=== PATIENT | female | born 1970 | race Caucasian/White ===

== ENCOUNTER 2025-05-09 09:23 | Inpatient (IN) | payer OTHER, BC ==
[~2025-05-09] VITALS: Ht 162.6 cm; Wt 108.0 kg
[2025-05-09 09:27] VITALS: O2SAT 98
[2025-05-09] MEDS: IBUPROFEN 600MG TABLET PO ONE (09:41)
[2025-05-09 12:06] LABS: BASOPHILS % 0.6 % (0.0-2.0); EOSINOPHILS % 0.8 % (0.0-5.0); HEMATOCRIT. 40.9 % (36.0-48.0); HEMOGLOBIN. 13.5 g/dL (12.0-16.0); LYMPHOCYTES % 20.6 % (20.0-50.0); MEAN PLATELET VOLUME 9.2 fl (7.4-10.4); MONOCYTES % 5.7 % (2.0-8.0); NEUTROPHILS % 72.3 % (40.0-76.0); PLATELET 309 x1000/uL (130-400); RED BLOOD CELL COUNT 4.56 mill/uL (4.2-5.4); RED CELL DISTRIBUTION WIDTH 13.9 % (11.6-14.6)
[2025-05-09 12:28] LABS: CREATININE 0.7 mg/dL (0.6-1.0); UREA NITROGEN BLOOD 11 mg/dL (9-23)
[2025-05-09 13:55] VITALS: BP 104/58; PULSE 56; RESP 20; TEMP 36.3; O2SAT 99
[2025-05-09 13:58] VITALS: BP 104/58; PULSE 56; RESP 17; TEMP 36.3; O2SAT 99
[2025-05-09 14:00] VITALS: BP 104/58; PULSE 56; RESP 18; TEMP 36.3624
[2025-05-09] MEDS ORDERED: ONDANSETRON HCL 4MG/2ML INJ IV PRN (15:30)
[2025-05-09] MEDS ORDERED: IPRATROPIUM/ALBUTEROL 0.5-3(2.5)MG/3ML NEB HHN PRN (15:30)
[2025-05-09] MEDS ORDERED: ACETAMINOPHEN 325MG TABLET PO PRN (15:30)
[2025-05-09 16:00] VITALS: BP 122/78; PULSE 62; RESP 20; TEMP 36.4; O2SAT 96
[2025-05-09] MEDS: CYCLOBENZAPRINE 10MG TABLET PO PRN (17:21)
[2025-05-09] MEDS: ENOXAPARIN 40MG/0.4ML SYR SUBCUT SCH (17:21)
[2025-05-09] MEDS ORDERED: INFLUENZA VACCINE 05/PF 0.5 ML SYRINGE IM ONE (17:30)
[2025-05-09 20:00] VITALS: BP 124/73; PULSE 60; RESP 18; TEMP 36; O2SAT 95
[2025-05-10] VITALS: BP 110/69; PULSE 60; RESP 17; TEMP 36; O2SAT 98
[2025-05-10 04:00] VITALS: BP 121/68; PULSE 64; RESP 18; TEMP 36.1; O2SAT 95
[2025-05-10 08:00] VITALS: BP 120/74; PULSE 78; RESP 17; TEMP 36.4; O2SAT 98
[2025-05-10 08:37] LABS: BASOPHILS % 0.6 % (0.0-2.0); EOSINOPHILS % 1.3 % (0.0-5.0); HEMATOCRIT. 38.0 % (36.0-48.0); HEMOGLOBIN. 12.7 g/dL (12.0-16.0); LYMPHOCYTES % 25.9 % (20.0-50.0); MEAN PLATELET VOLUME 9.2 fl (7.4-10.4); MONOCYTES % 7.0 % (2.0-8.0); NEUTROPHILS % 65.2 % (40.0-76.0); PLATELET 275 x1000/uL (130-400); RED BLOOD CELL COUNT 4.26 mill/uL (4.2-5.4); RED CELL DISTRIBUTION WIDTH 14.3 % (11.6-14.6)
[2025-05-10 08:45] LABS: CREATININE 0.6 mg/dL (0.6-1.0)
[2025-05-10 08:46] LABS: UREA NITROGEN BLOOD 10 mg/dL (9-23)
[2025-05-10 12:00] VITALS: BP 116/67; PULSE 65; RESP 17; TEMP 36.5; O2SAT 100
[2025-05-10] MEDS ORDERED: METH4TAB95 MT (15:16)
[2025-05-10 16:00] VITALS: BP 121/74; PULSE 67; RESP 18; TEMP 36.4; O2SAT 100
[2025-05-10 16:25] VITALS: BP 121/74; PULSE 67; RESP 18; TEMP 97.6
== END 2025-05-10 19:20 | disposition home or self-care (01) | DRG 556 ==
LOC: ER 09:23 → 7EST 13:11 → ENRESERV 13:18
PROVIDERS: ADMIT Internal Medicine; ATTEND Internal Medicine
DX: M25.552 Pain in left hip (principal); K76.0 Fatty (change of) liver, not elsewhere classified; M54.9 Dorsalgia, unspecified
CPT/HCPCS: 36415; 72131; 72192; 73502; 73562; 80048; 85025; 99285; J1650